=== PATIENT | male | born 1955 | race Caucasian/White ===

== ENCOUNTER 2022-03-28 13:13 | Outpatient (CLI) | payer MEDICARE ==
--- NOTE | 2022-03-28 15:29 | XRAY Report ---
PROCEDURE: Shoulder 3 View RT INDICATIONS: PAIN OF RIGHT SHOULDER TECHNIQUE: 3 views of the shoulder were acquired. COMPARISON: None. FINDINGS: Bones: No acute fractures or dislocations. No suspicious bony lesions. Visualized ribs appear inta ct. -12 to moderate acromioclavicular joint degenerative changes. Minimal spurring of the inferior a spect of the glenoid. Soft tissues: Calcification superior to the humeral head may be related to calcific tendinopathy or c alcific bursitis. IMPRESSION: 1.Calcification superior to the humeral head may represent calcific tendinitis or calcific bursitis. 2.[id number] acromioclavicular osteoarthrosis. Reviewed by: Erik Morales MD on 03/28/2022 2:28 PM ISAIAS Approved by: Erik Morales MD on 03/28/2022 2:28 PM ISAIAS Station ID: [id number]
== END 2022-03-28 13:14 | disposition home or self-care (01) ==
LOC: DI 13:13
PROVIDERS: ATTEND Physician Assistant
DX: M19.011 Primary osteoarthritis, right shoulder (principal)

== ENCOUNTER 2022-04-11 11:29 | Outpatient (CLI) | payer MEDICARE ==
[2022-04-11 13:33] VITALS: BP 152/88
--- NOTE | 2022-04-11 13:33 | SLEEP CARE CONSULTATION ---
Information from patient questionnaire entered by Wilton Gonzalez. I have reviewed and concur with the information entered by Wilton Gonzalez. This document represents the service I personally performed and the decisions made by me, Sara Jenkins MD, [facility]. History of Present Illness Service Date and Time: 04/11/2022 1129 Reason for Visit: New patient, Other (CPAP REPLACEMENT, SAME MACHINE SINCE 2012) Usual bedtime: 10PM Time it takes to fall asleep: 20 MINUTES Snores at night: Yes Observed to quit breathing while asleep: Yes Sleeps alone due to snoring: No Number of times waking at night: 1-2 Reasons for waking at night: reports: Bathroom Toss, Turn, or Twitch while sleeping: Yes Recalls having dreams: No Usually gets out of bed at: 6AM Feels refreshed in the morning: Yes Morning headache: No Sleepy or fatigued during the day: No Ever fallen asleep while driving: No Takes day naps: Yes Dreams during day naps: No Prior sleep studies: Yes Year and Where: [facility] 10/15/2012 Additional HPI information: I had the pleasure of seeing Mr. Lopes today regarding obstructive sleep apnea- hypopnea. As you know, he is a 70-year-old gentleman who was diagnosed with the sleep-disordered breathing at [facility] in [place] 9 years ago. The AHI was 15 and asim oxygen saturation, 90%. He was prescribed a CPAP device set at 5 20 cmH2O. He uses most nights. The compliance data show usage in 81 out of the past 90 nights, averaging 4.6 hours a night. The residual AHI is 1.3 and average time in large leak per day is 8 seconds. He wears the ResMed P10 nasal pillows. He gets his supplies from [employer]. He found the treatment beneficial at first, but not so sure now. - Parasomnia Symptoms Ever been unable to move upon waking from sleep: No Walks in sleep: No Talks in sleep: No Ever acted out dreams in sleep: No Ever felt weak in the knees when startled or emotional: No Bothered by creepy, crawly, restless sensations in legs: No Problems with memory or concentration: No Subjective Initial [place] Sleepiness Scale score: 4 (04/02/22) Past Medical History Past Medical History: reports: Hypertension, Other (ACID REFLUX, HIGH CHOLESTEROL, BPH ) Social History The patient's occupation is a RE. Patient is and lives in . Have you smoked in the past 12 months: Yes Cigarettes per day (20/pack): 10 Years of smokin Quit date: 1985 Smoking Pack Years: 5.0 Alcohol use: Yes Alcohol amount and frequency: 2-4 GLASSES PER WEEK Caffeine use: Yes Caffeine amount and frequency: 2-3 CUPS PER DAY Family History Family history of sleep disordered breathing: Yes Family Hx Sleep Apnea: Father: Snoring, Sleep apnea - Untreated, Sibling: Snoring, Sleep apnea - Treated Allergies and Home Medications Known drug allergies: No Drug allergies reviewed: Yes Home medication list reviewed: Yes Review of Systems Cardiovascular: reports: high blood pressure, other (LBBB) Respiratory: denies: shortness of breath, wheeze, sputum production, chronic cough, other Gastrointestinal: reports: heartburn Urinary: reports: frequency Neurological: denies: headaches, seizure, head trauma, disorientation, speech dysfunction, gait or balance problems, fainting or unconsciousness, other Psychiatric: denies: Attention Deficit Hyperactivity, anxiety, depression, mood disorder, claustrophobia, other Ear/Nose/Throat: reports: nasal congestion Endocrine: denies: thyroid disease, history of goiter, sluggishness, too hot or cold, excessive thirst, increased appetite, increased urination, unexplained weakness, other Musculoskeletal: reports: other (SHOULDER PAIN ) Immunologic: reports: itching Physical Exam Vital signs obtained and entered by: YUNIOR ARIZA Blood Pressure: 152/88 (LEFT ARM ) Cuff size: regular Heart Rate: 53 O2 Saturation: 98 Height: 6 ft Weight: 491 lb 10.093 oz Body Mass Index: 66.6 BMI Classification: Morbidly Obese Neck circumference: 16.5 (INCHES ) Mood/affect: normal HEENT: No craniofacial malformation Nostrils: patent to airflow Turbinates: normal Septum: midline Mouth and throat: narrow oropharynx Soft palate: long Hard palate: normal Uvula: normal Uvula visualization: 50% Mallampati Class II Tongue: enlarged in size with teeth jacobo on lateral edges Tonsils: small Chin and jaw: normal size and position Neck: normal w/o lymphadenopathy or thyromegaly Heart: regular rate and rhythm Lungs: clear bilaterally Extremities: no edema or clubbing Neurologic: intact Impression and Plan IMPRESSION: 1. Obstructive Sleep Apnea-Hypopnea Syndrome, moderate as previously diagnosed. The patient is using his CPAP most nights but complains that it is not producing enough air. This is most likely due to the 30-lb weight loss which probably improves his sleep-disordered breathing and the autoCPAP does not have to increase it pressure beyond 6 cmH2O. He also reports only light snore when not using his CPAP. Besides, he no longer sleeps supine (most of the respiratory events occurred almost exclusively during supine sleep during the sleep study). Therefore, I will repeat the in-laboratory polysomnography before ordering him a new device to see if he still has obstructive sleep apnea- hypopnea. Plan: 1. Repeat in-laboratory polysomnography. The patient may sleep on his side. He is to not use his CPAP 2 nights prior to the sleep study. 2. Return for follow up after the sleep study. Follow up with Sleep Care in: 1-2 months Visit Type: In Office Time Spent with Patient (minutes): 15 Provider Statement: I spent 100% of the Face to Face Visit with the patient with greater than 50% spent counseling the patient and coordination of care.
== END 2022-04-11 11:30 | disposition home or self-care (01) ==
LOC: SC 11:29
PROVIDERS: ATTEND Internal Medicine Pulmonary Disease
DX: G47.33 Obstructive sleep apnea (adult) (pediatric) (principal); E66.01 Morbid (severe) obesity due to excess calories; Z68.44 Body mass index [BMI] 60.0-69.9, adult; Z87.891 Personal history of nicotine dependence
CPT/HCPCS: 99202; G0463; 99212

== ENCOUNTER 2023-03-23 15:28 | Outpatient (CLI) | payer MEDICARE | END 2023-03-23 15:29 | disposition home or self-care (01) | LOC: RT 15:28 | PROVIDERS: ATTEND Urology | DX: Z01.810 Encounter for preprocedural cardiovascular examination (principal) | CPT/HCPCS: 93005 ==

== ENCOUNTER 2024-02-26 08:09 | Outpatient (CLI) | payer MEDICARE ==
--- NOTE | 2024-02-26 10:34 | Ultrasound Report ---
PROCEDURE: Aorta Screening INDICATIONS: HIST OF TOBACCO USE TECHNIQUE: Real time scanning was performed of the aorta and iliac arteries, with image documentatio n. COMPARISON: None. FINDINGS: Aorta: Proximal aortic diameter measures 2.2 x 2.2 cm. Mid-aorta measures 1.8 x 2.1 cm. Distal aor tic diameter is 1.3 x 1.4 cm. Iliac arteries: Right common iliac artery measures 1.3 x 1.1 cm. Left common iliac artery measures 1.2 x 1.1 cm. IMPRESSION: No aortic aneurysm. Recommended intervals for follow-up imaging of ectatic aortas and abdominal aortic aneurysms, per ACR consensus guidelines: 2.5-2.9 cm: 5 years 3.0-3.4 cm: 3 years 3.5-3.9 cm: 2 years 4.0-4.4 cm: 1 year 4.5-4.9 cm: 6 months + endovascular referral 5.0-5.5 cm: 3-6 months + endovascular referral Reviewed by: Satinder Patel MD on 02/26/2024 10:32 AM PDT Approved by: Satinder Patel MD on 02/26/2024 10:32 AM PDT Station ID: [id number]
== END 2024-02-26 08:10 | disposition home or self-care (01) ==
LOC: DI 08:09
PROVIDERS: ATTEND Physician Assistant
DX: Z13.6 Encounter for screening for cardiovascular disorders (principal); Z87.891 Personal history of nicotine dependence